=== PATIENT | male | born 1955 | race Caucasian/White ===

== ENCOUNTER 2023-03-20 09:47 | Emergency (ER) | payer MEDICARE ==
--- NOTE | 2023-03-20 09:53 | ED General ---
General Stated Complaint: DIARRHEA | ACHES AND PAINS History of Present Illness Date Seen by Provider: Mar 20, 2023 Time Seen by Provider: 09:52 Initial Comments 68-year-old male with PMH of AAA with past surgery for it/ HTN/ CAD with past STEMI, is here with complaints of diarrhea and generalized body aches for the past 2 to 3 days. Patient states that he has, to the bathroom numerous times throughout the day. Denies fever and chills, shortness of breath, cough, nausea and vomiting, abdominal pain, chest pain. No known sick contacts. Pt recently came to [place] from [place] and lives in his camper. Pt has not drank water from [place]. Allergies and Home Medications Allergies Coded Allergies: Penicillins (Verified Allergy, Unknown, 03/20/23) Patient Home Medication List Home Medication List Reviewed: Yes Review of Systems Review of Systems Constitutional: malaise EENTM: no symptoms reported Respiratory: no symptoms reported Cardiovascular: no symptoms reported Gastrointestinal: diarrhea Genitourinary: no symptoms reported Musculoskeletal: no symptoms reported Skin: no symptoms reported Psychiatric/Neurological: No Symptoms Reported Hematologic/Lymphatic: No Symptoms Reported Immunological/Allergic: no symptoms reported Physical Exam Vital Signs Vital Signs - First Documented 03/20/23 09:50 Temp 36.6 Pulse 104 Resp 16 B/P (MAP) 141/95 (110) Pulse Ox 97 Capillary Refill : Height, Weight, BMI Height: '" Weight: lbs. oz. kg; BMI Method: General Appearance: No Apparent Distress, WD/WN HEENT: PERRL/EOMI, Normal ENT Inspection Neck: Full Range of Motion, Normal Inspection, Non Tender Respiratory: Chest Non Tender, Lungs Clear, Normal Breath Sounds Cardiovascular: Regular Rate, Rhythm, No Edema Gastrointestinal: Normal Bowel Sounds, No Organomegaly, Non Tender, Soft Back: Normal Inspection, No CVA Tenderness, No Vertebral Tenderness Extremity: Normal Range of Motion Neurologic/Psychiatric: Alert, Oriented x3, No Motor/Sensory Deficits Skin: Normal Color Progress/Results/Core Measures Suspected Sepsis SIRS Temperature: Pulse: Respiratory Rate: Blood Pressure / Mean: Results/Orders Lab Results Laboratory Tests Test 03/20/23 09:55 03/20/23 10:10 Range/Units Urine Color YELLOW Urine Clarity CLEAR Urine pH 5.5 5-9 Urine Specific [place] >=1.030 1.016-1.022 Urine Protein 2+ H NEGATIVE Urine Glucose (UA) NEGATIVE NEGATIVE Urine Ketones NEGATIVE NEGATIVE Urine Nitrite NEGATIVE NEGATIVE Urine Bilirubin NEGATIVE NEGATIVE Urine Urobilinogen 0.2 < = 1.0 MG/DL Urine Leukocyte Esterase NEGATIVE NEGATIVE Urine RBC (Auto) 2+ H NEGATIVE Urine RBC 5-10 H /HPF Urine WBC 2-5 /HPF Urine Squamous Epithelial Cells 2-5 /HPF Urine Crystals NONE /LPF Urine Bacteria MODERATE H /HPF Urine Casts PRESENT /LPF Urine Hyaline Casts 2-5 H /LPF Urine Coarse Granular Casts 0-2 H /LPF Urine Mucus NEGATIVE /LPF Urine Culture Indicated YES Influenza Type A (RT-PCR) Not Detected Not Detecte Influenza Type B (RT-PCR) Not Detected Not Detecte SARS-CoV-2 RNA (RT-PCR) Detected H Not Detecte My Orders Orders - BASSAM ISAAC MD Covid 19 Inhouse Test (03/20/23 09:53) Influenza A And B By Pcr (03/20/23 09:53) Ua Culture If Indicated (03/20/23 09:53) Urine Culture (03/20/23 09:55) Stool Culture (03/20/23 10:15) Fecal Wbc (03/20/23 10:15) C Difficile Ag + Toxin A/B. (03/20/23 10:15) Parasite Scrn Stool Giard Cryp (03/20/23 10:15) Parasite Complete Exam Stool (03/20/23 10:15) Rotavirus Antigen (03/20/23 10:15) Ed Iv/Invasive Line Start (03/20/23 10:15) Ns Iv 1000 Ml (Sodium Chloride 0.9%) (03/20/23 10:15) Vital Signs/I&O 03/20/23 09:50 Temp 36.6 Pulse 104 Resp 16 B/P (MAP) 141/95 (110) Pulse Ox 97 Capillary Refill : Progress Note : Progress Note 1.COIVD POSITIVE WITH GI SYMPTOMS & DEHYDRATION: -Patient's diarrhea is due to a positive COVID -COVID test is positive -Influenza test negative -UA unremarkable - Discussed Paxlovid with patient due to his past medical history of hypertension and cardiovascular disease, however Paxlovid's side effect includes diarrhea which the patient is already suffering from, so will not give Paxlovid at this time. - Advised adequate hydration and nbutrition, Vitamin C, Vitamin D, and Zinc vitamins - Advised follow up with PCP. Call to make appointment -Over the counter Peptol Bismol as needed - Tylenol as needed for fever or body aches. -The patient was seen in the ED, and treated appropriately to presentation at a specific point in time. Patient is informed that there is a possibility that disease and illness can evolve and change in acuity rapidly or slowly after patient is discharged from the ER. Precautionary advice given to the patient for immediate return to ER if symptoms worsen or do not resolve, and to seek emergency care sooner rather than later. Pt also advised on the importance of PCP follow up and compliance with management and follow up plan with PCP and/or specialist, as this is part of the management plan. Pt verbally expressed understanding. Departure Impression Primary Impression: Gastroenteritis due to COVID-19 virus Additional Impression: Dehydration Disposition: 01 HOME, SELF-CARE Condition: Improved Departure-Patient Inst. Referrals: NO,LOCAL PHYSICIAN (PCP/Family) Primary Care Physician Patient Instructions: Diarrhea, Adult ED, COVID-19 overview, Dehydration, Adult ED Add. Discharge Instructions: - Advised adequate hydration and nbutrition, Vitamin C, Vitamin D, and Zinc vitamins - Advised follow up with PCP. Call to make appointment -Over the counter Peptol Bismol as needed - Tylenol as needed for fever or body aches. BASSAM ISAAC MD Mar 20, 2023 09:52
[2023-03-20 10:03] LABS: BILIRUBIN,URINE NEGATIVE (NEGATIVE); CLARITY,URINE CLEAR; COLOR,URINE YELLOW; GLUCOSE, URINE (UA) NEGATIVE (NEGATIVE); KETONES,URINE NEGATIVE (NEGATIVE); LEUKOCYTE ESTERASE ,URINE NEGATIVE (NEGATIVE); NITRITE,URINE NEGATIVE (NEGATIVE); PH,URINE 5.5 (5-9); PROTEIN,URINE 2+ (NEGATIVE)
[2023-03-20 10:04] LABS: BACTERIA,URINE MODERATE /HPF
[2023-03-20] MEDS ORDERED: NS IV 1000 ML 1,000 ML IV SCH (10:15)
[2023-03-20 11:35] VITALS: BP 145/87
== END 2023-03-20 11:35 | disposition home or self-care (01) ==
LOC: ER FS 09:50
DX: U07.1 COVID-19 (principal); A08.39 Other viral enteritis; E86.0 Dehydration; Z28.310 Unvaccinated for COVID-19
CPT/HCPCS: 81000; 87015; 87045; 87046; 87088; 87177; 87324; 87328; 87329; 87425; 87449; 87636; 87899

== ENCOUNTER 2023-03-22 15:43 | Emergency (ER) | payer MEDICARE ==
[~2023-03-22] VITALS: Ht 182.9 cm; Wt 86.2 kg
[2023-03-22] MEDS ORDERED: NS IV 1000 ML 1,000 ML IV STA (15:50)
--- NOTE | 2023-03-22 15:50 | ED Abdominal Pain ---
General Stated Complaint: ABD PAIN History of Present Illness Date Seen by Provider: Mar 22, 2023 Time Seen by Provider: 15:46 Initial Comments 68-year-old male presents with diarrhea for 5 days. He reports that he now has some blood in his stool. He was tested positive for COVID 2 days ago. This has some generalized weakness and does not feel well. Allergies and Home Medications Allergies Coded Allergies: Penicillins (Verified Allergy, Unknown, 03/20/23) Patient Home Medication List Home Medication List Reviewed: Yes Review of Systems Review of Systems Constitutional: malaise Gastrointestinal: Abdominal Pain, Diarrhea, Nausea, Vomiting Genitourinary: No Symptoms Reported Musculoskeletal: no symptoms reported Skin: no symptoms reported Past Sdyiljl-Juwxct-Tparzm Hx Immunizations Up To Date First/Initial COVID19 Vaccinat: Denies Past Medical History Surgery/Hospitalization HX: HTN; Cardiac Stent; [place]; AAA repair; High Cholesterol Physical Exam Vital Signs Vital Signs - First Documented 03/22/23 03/22/23 15:43 17:56 Temp 36.5 Pulse 90 Resp 17 B/P (MAP) 125/108 (114) Pulse Ox 98 O2 Delivery Room Air Capillary Refill : Height/Weight/BMI Height: '" Weight: lbs. oz. kg; BMI Method: General Appearance: WD/WN, no apparent distress Respiratory: lungs clear, normal breath sounds Cardiovascular: normal peripheral pulses, regular rate, rhythm Gastrointestinal: soft, tenderness (mild lower abd ) Extremities: normal range of motion, non-tender Neurologic/Psychiatric: alert, normal mood/affect, oriented x 3 Skin: normal color, warm/dry Progress/Results/Core Measures Results/Orders Lab Results Laboratory Tests Test 03/22/23 15:50 Range/Units White Blood Count 11.1 H 4.3-11.0 10^3/uL Red Blood Count 4.00 L 4.30-5.52 10^6/uL Hemoglobin 12.2 L 13.3-17.7 g/dL Hematocrit 35 L 40-54 % Mean Corpuscular Volume 88 80-99 fL Mean Corpuscular Hemoglobin 31 25-34 pg Mean Corpuscular Hemoglobin Concent 35 32-36 g/dL Red Cell Distribution Width 14.6 H 10.0-14.5 % Platelet Count 90 L 130-400 10^3/uL Mean Platelet Volume 11.5 9.0-12.2 fL Immature Granulocyte % (Auto) 1 % Neutrophils (%) (Auto) 80 H 42-75 % Lymphocytes (%) (Auto) 10 L 12-44 % Monocytes (%) (Auto) 10 0-12 % Eosinophils (%) (Auto) 0 0-10 % Basophils (%) (Auto) 0 0-10 % Neutrophils # (Auto) 8.8 H 1.8-7.8 10^3/uL Lymphocytes # (Auto) 1.1 1.0-4.0 10^3/uL Monocytes # (Auto) 1.1 H 0.0-1.0 10^3/uL Eosinophils # (Auto) 0.0 0.0-0.3 10^3/uL Basophils # (Auto) 0.0 0.0-0.1 10^3/uL Immature Granulocyte # (Auto) 0.1 0.0-0.1 10^3/uL Neutrophils % (Manual) 59 % Lymphocytes % (Manual) 9 % Monocytes % (Manual) 12 % Eosinophils % (Manual) 0 % Basophils % (Manual) 0 % Band Neutrophils 20 % Platelet Estimate DECREASED Percent Immature Platelet Fraction 8.8 H 0.0-7.6 % Microcytosis 1+ Sodium Level 135 135-145 MMOL/L Potassium Level 3.0 L 3.6-5.0 MMOL/L Chloride Level 94 L 98-107 MMOL/L Carbon Dioxide Level 14 L 21-32 MMOL/L Anion Gap 27 H 5-14 MMOL/L Blood Urea Nitrogen 79 H 7-18 MG/DL Creatinine 5.72 H 0.60-1.30 MG/DL Estimat Glomerular Filtration Rate 10 BUN/Creatinine Ratio 14 Glucose Level 149 H 70-105 MG/DL Calcium Level 7.9 L 8.5-10.1 MG/DL Corrected Calcium 7.8 L 8.5-10.1 MG/DL Total Bilirubin 0.4 0.1-1.0 MG/DL Aspartate Amino Transf (AST/SGOT) 19 5-34 U/L Alanine Aminotransferase (ALT/SGPT) 15 0-55 U/L Alkaline Phosphatase 68 40-136 U/L Total Protein 7.0 6.4-8.2 GM/DL Albumin 4.1 3.2-4.5 GM/DL Lipase 93 H 8-78 U/L My Orders Orders - COATES,SAMPSON L DO Cbc With Automated Diff (03/22/23 15:50) Comprehensive Metabolic Panel (03/22/23 15:50) Lipase (03/22/23 15:50) Ondansetron Injection (Zofran Injectio (03/22/23 16:00) Ns Iv 1000 Ml (Sodium Chloride 0.9%) (03/22/23 15:50) Manual Differential (03/22/23 15:50) Ct Abdomen/Pelvis Wo (03/22/23 16:29) Medications Given in ED Current Medications Medications Dose Ordered Sig/[place] Route Start Time Stop Time Status Last Admin Dose Admin Ondansetron HCl 4 mg ONCE ONCE IVP 03/22/23 16:00 03/22/23 16:01 DC 03/22/23 15:55 4 MG Vital Signs/I&O 03/22/23 03/22/23 15:43 17:56 Temp 36.5 36.5 Pulse 90 84 Resp 17 17 B/P (MAP) 125/108 (114) 98/52 Pulse Ox 98 O2 Delivery Room Air Room Air Progress Progress Note : Progress Note Patient's diagnostic studies were ordered reviewed and interpreted by me. Patient has significant elevation of his BUN and creatinine and abnormalities noted on his BMP. He was provided with 2 L of normal saline as he had slightly low blood pressure and he has not been having a lot of fluid intake. I did recommend patient be admitted however at this time he feels that he is unable to do so. Patient travels in his RV and has animals and declined any admission. I did discuss with him the need to drink plenty of fluids and follow-up for repeat check of his labs in a couple days. He should return to the ER with any worsening of symptoms. Patient did report he feels significantly better following the IV fluids and treatment in the ER. Patient is at increased risk for morbidity and mortality based on his social determinants of health, travel with no base home and no physician. He was given strict return precautions and discussed the need for him to really follow-up to have his kidney function rechecked and further evaluated. He was stable upon discharge Diagnostic Imaging Diagonstic Imaging: CT Plain Films/CT/US/NM/MRI: abdomen, pelvis Comments Date of Exam:03/22/23 CT ABDOMEN/PELVIS WO INDICATION: Blood in stool. TECHNIQUE: Multiple contiguous axial images were obtained through the abdomen and pelvis without the use of intravenous contrast. Auto Exposure Controls were utilized during the CT exam to meet ALARA standards for radiation dose reduction. COMPARISON: There is no previous study for comparison. FINDINGS: The visualized portions of the lung bases appear clear. There were no pleural fluid collections. There is no free intraperitoneal air. The liver shows no focal lesion. Gallbladder appears normal. Spleen, adrenals, and pancreas show no acute finding. There are some minimal calcifications of the pancreatic head and body which may represent the sequelae of old pancreatitis. Kidneys bilaterally show no hydronephrosis or stone. There is a cyst in the superior pole of the left kidney with benign appearance. There is no retroperitoneal mass or adenopathy. There is no ascites or abnormal fluid collection. There is a abdominal aortic aneurysm with stent graft device in place. There is no sign of rupture. Maximal aortic aneurysm sac diameter was 5.2 x 4.8 cm. Visualized bowel loops show fluid-filled loops of small bowel and colon which show no focal bowel wall thickening or overt obstruction. There are a few scattered uncomplicated sigmoid diverticula. IMPRESSION: There is fluid throughout large and small bowel without overt obstruction. There are uncomplicated sigmoid diverticula. There is a nonruptured abdominal aortic aneurysm with maximal diameter of 5.2 x 4.8 cm, with stent graft device in place. There is a benign-appearing cyst in the upper pole of the left kidney. Reviewed: Reviewed/Discussed Departure Impression Primary Impression: Gastroenteritis due to COVID-19 virus Additional Impressions: Dehydration Acute kidney injury due to COVID-19 Disposition: 01 HOME, SELF-CARE Condition: Stable Departure-Patient Inst. Referrals: NO,LOCAL PHYSICIAN (PCP/Family) Primary Care Physician Patient Instructions: Acute kidney injury, COVID-19 overview Add. Discharge Instructions: Be sure you are drinking plenty of fluids. Recommend he have your labs rechecked in 3 to 4 days at least by the end of the week. Return to the ER with any concerns or worsening of your symptoms. Start with a clear liquid diet and advance as tolerated due to your decreased appetite. SAMPSON COATES DO Mar 22, 2023 15:49
[2023-03-22] MEDS ORDERED: ONDANSETRON INJECTION 4 MG/2 ML (SDV) IVP ONE (16:00)
[2023-03-22 16:02] LABS: BASOPHILS % (AUTO) 0 % (0-10); EOSINOPHILS % (AUTO) 0 % (0-10); HEMATOCRIT 35 % (40-54); HEMOGLOBIN 12.2 g/dL (13.3-17.7); LYMPHOCYTES # (AUTO) 1.1 10^3/uL (1.0-4.0); LYMPHOCYTES % (AUTO) 10 % (12-44); MEAN CORPUSCULAR HEMOGLOBIN 31 pg (25-34); MEAN CORPUSCULAR HGB CONC 35 g/dL (32-36); MEAN CORPUSCULAR VOLUME 88 fL (80-99); MEAN PLATELET VOLUME 11.5 fL (9.0-12.2); MONOCYTES # (AUTO) 1.1 10^3/uL (0.0-1.0); MONOCYTES % (AUTO) 10 % (0-12); NEUTROPHILS # (AUTO) 8.8 10^3/uL (1.8-7.8); NEUTROPHILS % (AUTO) 80 % (42-75); PLATELET COUNT 90 10^3/uL (130-400); WHITE BLOOD COUNT 11.1 10^3/uL (4.3-11.0)
[2023-03-22 16:18] LABS: ALBUMIN 4.1 GM/DL (3.2-4.5); BILIRUBIN,TOTAL 0.4 MG/DL (0.1-1.0); CALCIUM 7.9 MG/DL (8.5-10.1); CREATININE SERUM 5.72 MG/DL (0.60-1.30)
[2023-03-22 16:25] LABS: BAND NEUTROPHILS 20 %; BASOPHILS % (MANUAL) 0 %; EOSINOPHILS % (MANUAL) 0 %; LYMPHOCYTES % (MANUAL) 9 %; MONOCYTES % (MANUAL) 12 %; NEUTROPHILS % (MANUAL) 59 %
[2023-03-22 16:26] LABS: MICROCYTOSIS 1+; PLATELET ESTIMATE DECREASED
--- NOTE | 2023-03-22 16:58 | Diagnostic Imaging Report ---
INDICATION: Blood in stool. TECHNIQUE: Multiple contiguous axial images were obtained through the abdomen and pelvis without the use of intravenous contrast. Auto Exposure Controls were utilized during the CT exam to meet ALARA standards for radiation dose reduction. COMPARISON: There is no previous study for comparison. FINDINGS: The visualized portions of the lung bases appear clear. There were no pleural fluid collections. There is no free intraperitoneal air. The liver shows no focal lesion. Gallbladder appears normal. Spleen, adrenals, and pancreas show no acute finding. There are some minimal calcifications of the pancreatic head and body which may represent the sequelae of old pancreatitis. Kidneys bilaterally show no hydronephrosis or stone. There is a cyst in the superior pole of the left kidney with benign appearance. There is no retroperitoneal mass or adenopathy. There is no ascites or abnormal fluid collection. There is a abdominal aortic aneurysm with stent graft device in place. There is no sign of rupture. Maximal aortic aneurysm sac diameter was 5.2 x 4.8 cm. Visualized bowel loops show fluid-filled loops of small bowel and colon which show no focal bowel wall thickening or overt obstruction. There are a few scattered uncomplicated sigmoid diverticula. IMPRESSION: There is fluid throughout large and small bowel without overt obstruction. There are uncomplicated sigmoid diverticula. There is a nonruptured abdominal aortic aneurysm with maximal diameter of 5.2 x 4.8 cm, with stent graft device in place. There is a benign-appearing cyst in the upper pole of the left kidney. Dictated by: Dictated on workstation # [id number]
[2023-03-22 17:56] VITALS: BP 98/52
== END 2023-03-22 17:59 | disposition home or self-care (01) ==
LOC: EDUNIT# 15:43 → ER FS 15:44
DX: U07.1 COVID-19 (principal); A08.39 Other viral enteritis; N17.9 Acute kidney failure, unspecified; E86.0 Dehydration; Z28.310 Unvaccinated for COVID-19; Z73.0 Burn-out
CPT/HCPCS: 36415; 74176; 80053; 83690; 85007; 85027